=== PATIENT | male | born 1955 | race Caucasian/White ===

== ENCOUNTER 2020-11-09 13:11 | Emergency (ER) | payer OTHER, SELFPAY ==
[2020-11-09 13:27] VITALS: BP 138/82; PULSE 75; RESP 16; TEMP 36.5; O2SAT 98
--- NOTE | 2020-11-09 14:19 | ED.GENADULT ---
HPI - General Adult General Chief complaint: Dental/Oral Stated complaint: tooth pain Time Seen by Provider: 11/09/20 14:19 Source: patient and RN notes reviewed Mode of arrival: ambulatory Limitations: no limitations History of Present Illness HPI narrative: 65-year-old male presents with complaints of upper and lower left dental pain for the past 2 days. S. reports he has been dealing with infected teeth for years which has increased pain has increased over the past 24 hours. ?Ibuprofen was last taken today at approximately 13:00 without relief. ?Denies any drainage. ?No fever. ?No jaw swelling. ?No neck swelling. ?No limitation with speaking or swallowing. ?Has a history of dental caries. ?Has not seen a dentist recently. ?No dental trauma. ?No oral lesions. ?Exacerbating factors consist of chewing on LT side, eating and drinking cold items. ?No relieving factors. ?No dentures or bridges. ?Tolerating liquids well. The patient reports he has not been diagnosed with COVID-19. The patient reports he is not waiting for the results of a COVID-19 lab test. ?The patient reports he does not have chills, weakness, or fatigue. ?The patient reports he does not have a new or worsening cough or shortness of breath. Denies chest pain. ?The patient reports he does not have any rhinorrhea, congestion, loss of taste or smell, sore throat, nausea, vomiting, abdominal pain, and diarrhea. Denies recent traveling. ?Denies concerns for COVID-19 or exposures. ?At this time, the patient is not suspected of having COVID-19. Some parts of this dictation were generated by voice recognition software and may contain typographical and/or grammatical inaccuracies. Related Data Allergies Allergy/AdvReac Type Severity Reaction Status Date / Time No Known Allergies Allergy Verified 11/09/20 13:41 Review of Systems Review of Systems: Narrative: CONSTITUTIONAL: Denies fever, chills, sweats. EYES: Denies visual changes, redness, discharge. ENT: Denies rhinorrhea, congestion, sore throat, otalgia. Complains of LT upper and lower dental pain. CARDIOVASCULAR: Denies chest pain, palpitations, edema. RESPIRATORY: Denies dyspnea, wheezing, cough. GASTROINTESTINAL: Denies abdominal pain, nausea, vomiting, diarrhea. SKIN: Denies rash or itching. MUSCULOSKELETAL: Denies acute back pain, joint pain, or myalgia. NEUROLOGIC: Denies numbness or focal weakness. PSYCHIATRIC: Denies anxiety or depression. All systems reviewed & are unremarkable except as noted in HPI and below. [facility] Past Medical History Medical History (Updated 11/18/20 @ 00:21 by KRISTIE Fitzgerald) Cigarette smoker Marijuana smoker Surgical History Surgical History (Updated 11/18/20 @ 00:21 by KRISTIE Fitzgerald) No significant past surgical history Family History Family History (Updated 11/18/20 @ 00:22 by KRISTIE Fitzgerald) Father Acute myocardial infarction Mother , ole age Unknown family medical history Social History Social History (Updated 11/18/20 @ 00:23 by KRISTIE Fitzgerald) Smoking packs per day: 1 Smoking cigarettes per day: 20.0 Years smoked: 40 Smoking pack-years: 40.00 Smoking status: Current every day smoker Tobacco type: cigarettes Second hand tobacco smoke exposure: No Alcohol intake: former Substance use: current Substance use type: marijuana Living arrangements: with family Occupation/Education: occupation Gender identity (if verbalized by the patient): Male Sexual Orientation (if Verbalized by the Patient): Straight or Heterosexual Comments At time of signature, agree with the nurse past medical, surgical, social, and family history. There is no relevant family history pertinent to the presenting complaint. Exam Narrative: Exam Narrative: GENERAL: This is a well-nourished, well-developed patient, in no apparent distress. Talks in full sentences and ambulates with steady gait witho
== END 2020-11-09 14:32 | disposition home or self-care (01) ==
PROVIDERS: Emergency Provider Nurse Practitioner Family
DX: K02.9 Dental caries, unspecified (principal)
CPT/HCPCS: 99213; G0463

== ENCOUNTER 2021-08-14 08:42 | Emergency (ER) | payer MEDICARE, SELFPAY ==
[2021-08-14 08:52] VITALS: BP 123/77; PULSE 75; RESP 16; TEMP 35.9; O2SAT 98
--- NOTE | 2021-08-14 08:54 | ED.DENTAL ---
HPI - Dental/Oral General Chief complaint: Dental/Oral Stated complaint: Tooth Pain Time Seen by Provider: 08/14/21 08:54 Source: patient Mode of arrival: ambulatory Limitations: no limitations History of Present Illness HPI Narrative: 66-year-old male presents with complaint of left upper dental pain. Reports that he had a broken tooth in about 2 weeks ago tooth broke completely. Started having swelling pain 2 days ago. Here for an antibiotic. Does not have a dentist. Did take ibuprofen prior to arrival and is helping pain. All systems reviewed and negative except as noted above. Related Data Allergies Allergy/AdvReac Type Severity Reaction Status Date / Time No Known Allergies Allergy Verified 11/09/20 13:41 Review of Systems Review of Systems: CONSTITUTIONAL: Denies fever, chills, or sweats. EYES: Denies visual changes, redness, or discharge. ENT: Denies rhinorrhea, congestion, sore throat, or otalgia. Left upper dental pain. CARDIOVASCULAR: Denies chest pain, palpitations, or edema. RESPIRATORY: Denies cough or dyspnea. GASTROINTESTINAL: Denies abdominal pain, nausea, vomiting, or diarrhea. GENITOURINARY: Denies dysuria or hematuria. SKIN: Denies rash or itching. MUSCULOSKELETAL: Denies back pain, joint pain, or myalgia. NEUROLOGIC: Denies headache, numbness, or weakness. PSYCHIATRIC: Denies anxiety or depression. All other systems reviewed are negative, except as documented in HPI. [facility] Past Medical History Medical History (Updated 08/14/21 @ 09:01 by Estelita Yoo NP) Cigarette smoker Marijuana smoker Surgical History Surgical History (Updated 11/18/20 @ 00:21 by KRISTIE Fitzgerald) No significant past surgical history Family History Family History (Updated 11/18/20 @ 00:22 by KRISTIE Fitzgerald) Father Acute myocardial infarction Mother , ole age Unknown family medical history Social History Social History (Updated 11/18/20 @ 00:23 by KRISTIE Fitzgerald) Smoking packs per day: 1 Smoking cigarettes per day: 20.0 Years smoked: 40 Smoking pack-years: 40.00 Smoking status: Current every day smoker Tobacco type: cigarettes Second hand tobacco smoke exposure: No Alcohol intake: former Substance use: current Substance use type: marijuana Gender identity (if verbalized by the patient): Male Sexual Orientation (if Verbalized by the Patient): Straight or Heterosexual Comments At time of signature, agree with nursing past medical, surgical, social and family history. There is no relevant family history pertinent to the presenting complaint. Exam Narrative: GENERAL: This is a well-nourished, well-developed patient, in no apparent distress. HEAD: normocephalic, atraumatic. EYES: PERRL. Sclera clear/white. Vision is grossly intact. EARS: External ears normal NOSE: External nose normal THROAT: Mucous membranes moist, posterior pharynx clear. MOUTH: Multiple decayed and broken teeth. Patient has pain at tooth #14. This tooth is broken down to gumline, decayed. Erythema and swelling surrounding tooth. NECK: Neck supple, non-tender without lymphadenopathy, masses or thyromegaly. CARDIOVASCULAR: Regular rate and rhythm without murmurs, gallops, or rubs. RESPIRATORY: Clear to auscultation. Breath sounds equal bilaterally. No wheezes, rales, or rhonchi. SKIN: warm, Dry, intact with no suspicious lesions or rash, good texture and turgor. NEURO: awake, alert, and oriented to person, place and time. There were no obvious focal neurologic abnormalities. EXTREMITIES: Normal range of motion. Course Course Level of Care: Express Care Visit Vital Signs Vital signs: Vital Signs Temperature 35.9 C L 08/14/21 08:52 Pulse Rate 75 08/14/21 08:52 Respiratory Rate 16 08/14/21 08:52 Blood Pressure 123/77 08/14/21 08:52 Pulse Oximetry 98 08/14/21 08:52 Temperature 35.9 C L 08/14/21 08:52 Pulse Rate 75 08/14/21 0
== END 2021-08-14 09:03 | disposition home or self-care (01) ==
PROVIDERS: Emergency Provider Nurse Practitioner Family
DX: K08.89 Other specified disorders of teeth and supporting structures (principal); F17.210 Nicotine dependence, cigarettes, uncomplicated; F12.90 Cannabis use, unspecified, uncomplicated
CPT/HCPCS: 99213; G0463

== ENCOUNTER 2023-12-22 10:45 | Emergency (ER) | payer OTHER, SELFPAY ==
--- NOTE | 2023-12-22 11:05 | ED.SKABFB ---
HPI - Skin/Abscess/Foreign Bdy General Chief complaint: Skin/Abscess/Foreign Body Stated complaint: right index finger hurts, FB under nail Time Seen by Provider: 12/22/23 11:06 Source: patient, RN notes reviewed and old records reviewed Mode of arrival: ambulatory Limitations: no limitations History of Present Illness HPI narrative: Patient presents with complaints of right index finger pain and swelling. He reports that this has been present for 3 or 4 days. He believes he initially got a thorn stuck under the nail, now has significant swelling around the nail and into the tip of the finger. He is also complaining of longstanding dental infection. Reports that he knows he needs to go to the dentist. No facial or neck swelling, no drooling. Related Data Allergies Allergy/AdvReac Type Severity Reaction Status Date / Time No Known Allergies Allergy Verified 12/22/23 11:05 Review of Systems Review of Systems: All systems reviewed & are unremarkable except as noted in HPI and below Constitutional: Constitutional: Reports no additional constitutional complaints ENT: Reports system reviewed and no additional complaints, except as documented and Reports as per HPI Cardiovascular: Cardiovascular: Reports no additional cardiovascular complaints Respiratory: Respiratory: Reports no additional respiratory complaints Gastrointestinal: Gastrointestinal: Reports no additional gastrointestinal complaints Musculoskeletal: Musculoskeletal: Reports as per HPI Integumentary/Breasts: Skin/Breast: Reports as per HPI PMFSH Past Medical History Medical History (Updated 12/22/23 @ 11:48 by Lenore Bobby APRN) Cigarette smoker Marijuana smoker Surgical History Surgical History (Updated 11/18/20 @ 00:21 by KRISTIE Fitzgerald) No significant past surgical history Family History Family History (Updated 11/18/20 @ 00:22 by KRISTIE Fitzgerald) Father Acute myocardial infarction Mother , ole age Unknown family medical history Social History Social History (Updated 11/18/20 @ 00:23 by KRISTIE Fitzgerald) Smoking packs per day: 1 Smoking cigarettes per day: 20.0 Years smoked: 40 Smoking pack-years: 40.00 Smoking status: Current every day smoker Tobacco type: cigarettes Second hand tobacco smoke exposure: No Alcohol intake: former Substance use: current Substance use type: marijuana Living arrangements: with family Occupation/Education: occupation Gender identity (if verbalized by the patient): Male Sexual Orientation (if Verbalized by the Patient): Straight or Heterosexual Comments At the time of my signature, I reviewed and agree with the nursing past medical, surgical, social, and family history. There is no relevant family history pertinent to the patient complaint. Exam Const: General: cooperative, no acute distress, alert and awake Orientation/consciousness: oriented to person, oriented to place and oriented to time HENMT: Head: normal to inspection Teeth and gingiva: gingiva abnormal with purulent discharge (Right upper) and diffusely erythematous and poor dentition Neck: Neck: normal visual inspection, full ROM, no lymphadenopathy, no anterior neck swelling and No submandibular swelling Resp: Effort & Inspection: normal respiratory effort and able to speak in complete sentences Auscultation: clear to auscultation bilaterally, no crackles, no rales, no rhonchi and no wheezes Cardio: Palpation: normal PMI Rate: regular rate Rhythm: regular rhythm Heart sounds: S1 normal heart sound present and S2 normal heart sound present Skin: Full body images: 1. Pustule at the nail bed consistent with paronychia Neuro: General: oriented to person, oriented to place and oriented to time Cranial nerves: Yes CN's II-XII intact bilaterally Extrem: General: full ROM and capillary refill normal Psych: Appearance: grossly normal Thought process: No
[2023-12-22 11:06] VITALS: BP 120/55; PULSE 78; RESP 16; TEMP 36.2; O2SAT 100
== END 2023-12-22 12:04 | disposition home or self-care (01) ==
PROVIDERS: Emergency Provider Nurse Practitioner Family
DX: L03.011 Cellulitis of right finger (principal); K04.7 Periapical abscess without sinus; F17.210 Nicotine dependence, cigarettes, uncomplicated; F12.90 Cannabis use, unspecified, uncomplicated
CPT/HCPCS: 10060; 99213; G0463

== ENCOUNTER 2025-01-03 15:01 | Emergency (ER) | payer OTHER, SELFPAY ==
--- NOTE | 2025-01-03 15:02 | ED.DENTAL ---
HPI - Dental/Oral General Chief complaint: Dental/Oral Stated complaint: Dental Pain Time Seen by Provider: 01/03/25 15:09 Source: patient, RN notes reviewed and old records reviewed Mode of arrival: ambulatory Limitations: no limitations History of Present Illness HPI Narrative: 69-year-old male with very poor dentition presents with with left lower dental pain, swelling, no erythema. No drainage. Patient reports that he has a loose tooth, bumped it and is now swollen, red and painful. Has been using a ice pack as well as taking ibuprofen. Symptoms started on Tuesday, 3 days ago Has not seen a dentist in many years. States that his teeth normally fall out by themselves Onset (ago): day(s) (3) Treatment prior to arrival: other (Ibuprofen, ice packs) Related Data Allergies Allergy/AdvReac Type Severity Reaction Status Date / Time No Known Allergies Allergy Verified 01/03/25 15:02 Review of Systems Review of Systems: All systems reviewed & are unremarkable except as noted in HPI and below Constitutional: Constitutional: Reports no additional constitutional complaints ENT: Reports as per HPI and Reports dental pain Musculoskeletal: Musculoskeletal: Reports no additional musculoskeletal complaints Integumentary/Breasts: Skin/Breast: Reports system reviewed and no additional complaints, except as docu PMFSH Past Medical History Medical History Cigarette smoker Marijuana smoker Surgical History Surgical History No significant past surgical history Family History Family History Father Acute myocardial infarction Mother , ole age Unknown family medical history Social History Social History Smoking packs per day: 1 Smoking cigarettes per day: 20.0 Years smoked: 40 Smoking pack-years: 40.00 Smoking status: Current every day smoker Tobacco type: cigarettes Second hand tobacco smoke exposure: No Alcohol intake: former Substance use: current Substance use type: marijuana Living arrangements: with family Occupation/Education: occupation Gender identity (if verbalized by the patient): Male Sexual Orientation (if Verbalized by the Patient): Straight or Heterosexual Comments At the time of my signature, I reviewed and agree with the nursing past medical, surgical, social, and family history. There is no relevant family history pertinent to the patient complaint. Exam Const: General: cooperative, healthy appearing, comfortable, no acute distress, well developed, alert and well nourished Nutritional Appearance: well nourished Orientation/consciousness: patient oriented x3 Limitations: no limitations HENMT: Head: normal to inspection Teeth and gingiva: abnormal tooth and associated gingiva (Multiple missing teeth, multiple decayed teeth, receding gingiva) and gingiva abnormal edematous, diffusely erythematous (Left lower anterior lateral), tender and receding Eyes: General: appearance normal, both eyes and all related structures Alignment and Position: alignment normal Neck: Neck: normal visual inspection, full ROM, no lymphadenopathy and no meningeal signs Chest: Chest palpation & inspection: normal inspection of the chest Resp: Effort & Inspection: normal respiratory effort and able to speak in complete sentences Cardio: Rate: regular rate Skin: General skin exam: normal color and no rashes or lesions noted Neuro: General: patient oriented x3, gait normal, moves all extremities and no meningeal signs Cognition (Neuro): normal cognition Speech: normal speech Gait exam (Neuro): Normal gait present Extrem: General: normal to inspection, full ROM, capillary refill normal and normal gait Psych: Appearance: grossly normal and well kempt Mental Status: mental status grossly normal Speech and movement: Normal speech and movement present and Clear speech present Affect: normal affect Attitude: cooperative Course Course Level of Care: Express Care Visit Vital Signs Vital signs: Vital Signs Temperature 98.7 F 01/03/25 15:09 Pulse Rate 74 01/03/25 15:09 Respiratory Rate 16 01/03/25 15:09 Blood Pressure 127/84 01/03/25 15:09 Pulse Oximetry 100 01/03/25 15:09 Oxygen Delivery Room Air 01/03/25 15:09 Temperature 98.7 F 01/03/25 15:09 Pulse Rate 74 01/03/25 15:09 Respiratory Rate 16 01/03/25 15:09 Blood Pressure 127/84 01/03/25 15:09 Pulse Oximetry 100 01/03/25 15:09 Oxygen Delivery Room Air 01/03/25 15:09 Reviewed MDM - Dental/Oral MDM Narrative Medical decision making narrative: Patient with very poor dentition, has not seen a dental provider in a very long time. History of multiple dental infections presents with left lower dental pain. Has been applying ice. Has been taken ibuprofen. Poor dentition, loose teeth, receding gingiva, erythema to the left lower gingiva, concern for possible infections covering with penicillin List of dental providers given Patient appropriate for outpatient treatment with close follow-up Discharge instructions reviewed with patient, as well as provided in writing per nursing staff. The instructions also include specific and strict return/GO TO THE ER as well as f/u information. All questions have been answered, and the patient deny any further questions with discharge and discharge plan. Some parts of this dictation were generated by voice recognition software and may contain typographical and/or grammatical inaccuracies. Differential Diagnosis Differential diagnosis: Likely gingival abscess, dental caries, toothache, dental abscess and fracture of tooth Critical Care Time Critical Care Time Critical Care Time: No Discharge Plan Discharge Clinical Impression: Dental decay, Dental infection Patient Disposition: Home Condition: Stable Instructions: Antibiotic Form, Dental Abscess (ED) Additional Instructions: Finish the entire course of antibiotics [place] teeth and using good mouthwash twice daily After every time you eat be sure to use salt water rinses. Apply ice to face to help with pain. Take Tylenol alternating with Motrin as needed for pain. You can alternate every 4 hours You need to follow-up with a dental provider as soon as possible for further evaluation and treatment. A list of dental providers has been given to you Follow up with a Primary Care Provider (PCP) about medical needs. A PCP can help keep you healthy by preventive medicine and screening. Go to the ER for New or worsening symptoms. Patient Language: [place] Prescriptions: New penicillin V potassium 500 mg tablet 500 mg PO QID 7 Days Qty: 28 0RF ibuprofen 600 mg tablet 600 mg PO TID PRN (Reason: fever or pain) Qty: 30 0RF Follow-up/Referrals: UNKNOWN,DOCTOR [Non-Staff] - Stand Alone Forms: Work/School Release IP Time of Disposition: 15:17
[2025-01-03 15:09] VITALS: BP 127/84; PULSE 74; RESP 16; TEMP 37.1; O2SAT 100
== END 2025-01-03 15:19 | disposition home or self-care (01) ==
PROVIDERS: Emergency Provider Nurse Practitioner
DX: K02.9 Dental caries, unspecified (principal); K04.7 Periapical abscess without sinus; F17.210 Nicotine dependence, cigarettes, uncomplicated; F12.90 Cannabis use, unspecified, uncomplicated
CPT/HCPCS: 99213; G0463